=== PATIENT | female | born 1985 | race Two or more races ===

== ENCOUNTER 2017-10-06 09:38 | Outpatient (CLI) | payer OTHER ==
--- NOTE | 2017-10-08 12:09 | MRI Report ---
Procedure Date: 10/06/2017 Accession Number: [id number] / [id number] Procedure: MRI - Lumbar Spine W/O CPT Code: FULL RESULT: EXAM: MRI LUMBAR SPINE WITHOUT CONTRAST EXAM DATE: 10/06/2017 09:51 AM. CLINICAL HISTORY: Low back pain. COMPARISON: None. TECHNIQUE: Multiplanar, multisequence T1-weighted and fluid-sensitive sequences of the lumbar spine from T12 to S1 without contrast. Other: None. FINDINGS: Numbering assumes 5 non-rib bearing lumbar type vertebral bodies. Minimal grade 1 retrolisthesis of L3 relative to L4 and L4 relative to L5 is noted. There is slight rightward curvature in the lower lumbar spine and leftward curvature in the upper lumbar spine. The distal tip of the conus medullaris is seen at the level of the T12-L1 disk space. T9-L3: No posterior disk protrusion. L3-L4: A mild shallow foraminal and far lateral disk protrusion is seen on the right. Disk material attenuates the fat surrounding the right L3 nerve root after it exits the foramen. L4-L5: A minimal posterior lateral proximal foraminal protrusion is seen on the right. Superior lateral recess narrowing is seen bilaterally. L5-S1: No posterior disk protrusion. Facet/ligamentum flavum hypertrophy which is mild is present in the mid and lower lumbar spine. IMPRESSION: 1. A right-sided disk protrusion is seen at L3-L4 involving the foraminal and far lateral margin of the disk with disk material attenuating the fat surrounding the right L3 nerve root after it exits the foramen. 2. A minimal right-sided disk protrusion is seen involving the posterior lateral and foraminal margin of the disk at L4-L5. 3. No central canal or foraminal stenosis is identified. Comment: The following findings are so common in adults without low back pain that while we report their presence, they must be interpreted with caution and in the context of the clinical situation. (Reference Gisellk et al, Spine 2001) Prevalence of findings in patients without low back pain: Disk degeneration (any evidence): 92% Disk desiccation/T2 signal loss: 83% Disk height loss: 56% Disk bulge: 64% Disk protrusion: 32% Annular tear/high intensity zone: 38% RADIA
== END 2017-10-06 09:39 | disposition home or self-care (01) ==
LOC: DI 09:38
PROVIDERS: ATTEND Family Medicine
DX: M51.26 Other intervertebral disc displacement, lumbar region (principal)
CPT/HCPCS: 72148

== ENCOUNTER 2018-04-23 12:56 | Emergency (ER) | payer OTHER ==
[2018-04-23 13:05] VITALS: BP 141/88
--- NOTE | 2018-04-23 14:20 | ED Physician Documentation ---
History of Present Illness - Stated complaint Stated Complaint: LEFT TOE PX - Chief complaint Chief Complaint: Ext Problem - History obtained from History obtained from: Patient - History of Present Illness Timing: Other (2 months ago) Pain level max: 0 Pain level now: 0 - Additonal information Additional information: 32-year-old female presents to the emergency department with a red rash to the toes of the left foot for the past 2 months. Is been using lotion without relief. Nothing makes it better or worse. There is cracking and blistering as well. States it is itchy Review of Systems Constitutional: denies: Fever, Chills : reports: Other (No changes in sexual partners). 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 - Present Medications Home Medications: Ambulatory Orders Medication Instructions Recorded Confirmed Amitriptyline [Elavil] 25 mg PO HS 04/23/18 04/23/18 Terbinafine HCl 250 mg PO DAILY #14 tablet 04/23/18 - Allergies Allergies/Adverse Reactions: Allergies Allergy/AdvReac Type Severity Reaction Status Date / Time No Known Drug Allergies Allergy Verified 04/23/18 13:02 - Social History Does the pt smoke?: Yes Smoking Status: Current every day smoker Does the pt drink ETOH?: Yes - Immunizations Immunizations are current?: Yes PD ED PE NORMAL - Vitals Vital signs reviewed: Yes - General General: Alert and oriented X 3, No acute distress - HEENT HEENT: Moist mucous membranes - Derm Derm: Warm and dry - Extremities Extremities: Other (Erythema and scaling to the distal toes on the left foot. There is maceration of the tissue between the toes as well. Small satellite lesions. No pustules or vesicles.) - Neuro Neuro: Alert and oriented X 3 Results - Vitals Vitals: Vital Signs - 24 hr 04/23/18 13:02 Temperature 36.3 C L Heart Rate 102 H Respiratory 20 Rate Blood Pressure 141/88 H O2 Saturation 100 Oxygen O2 Source Room air PD MEDICAL DECISION MAKING - ED course Complexity details: considered differential, d/w patient ED course: Patient with tinea pedis of the left foot. She is well-appearing, nontoxic. Will place on terbinafine and follow-up with her doctor. She is not and has no plans to become . Patient counseled regarding signs and symptoms for which I believe and urgent re-evaluation would be necessary. Patient with good understanding of and agreement to plan and is comfortable going home at this time This document was made in part using voice recognition software. While efforts are made to proofread this document, sound alike and grammatical errors may occur. Departure - Departure Disposition: 01 Home, Self Care Clinical Impression: Tinea pedis Qualifiers: Laterality: left Qualified Code(s): B35.3 - Tinea pedis Condition: Good Instructions: ED Fungal Infec Athlete Foot Follow-Up: DINO HENRIQUEZ DO [Primary Care Provider] - Within 1 week Prescriptions: Terbinafine HCl 250 mg PO DAILY #14 tablet Comments: Take all medications until gone. Return if you worsen. You should have your liver tests checked with your doctor in 2 weeks.
== END 2018-04-23 14:33 | disposition home or self-care (01) ==
LOC: ED 12:56
DX: B35.3 Tinea pedis (principal); F17.200 Nicotine dependence, unspecified, uncomplicated
CPT/HCPCS: 99283

== ENCOUNTER 2018-06-04 07:48 | Outpatient (CLI) | payer OTHER ==
--- NOTE | 2018-06-05 04:45 | Ultrasound Report ---
Reason: PAIN, UNSPECIFIED, SYMPTOMS SIGNS INVOLVING THE Procedure Date: 06/04/2018 Accession Number: [id number] / [id number] Procedure: US - Duplex Ext Veins Bilateral CPT Code: FULL RESULT: EXAM: BILATERAL LOWER EXTREMITY VENOUS ULTRASOUND EXAM DATE: 06/04/2018 09:38 AM. CLINICAL HISTORY: Bilateral leg pain COMPARISON: DUPLEX LWR EXT ARTERIAL BILAT 06/04/2018 8:15 AM. TECHNIQUE: Real-time sonographic vascular imaging was performed by the service sprinkler helper through the lower extremities utilizing both color-flow and Doppler spectral analysis. Multiple internet sales representative static images were saved for review. FINDINGS: Right: Common Femoral Vein (CFV): Normal. CFV-GSV Junction: Normal. Profunda Femoral Vein (PFV): Normal. Femoral Vein (FV) Prox: Normal. Femoral Vein (FV) Mid: Normal. Femoral Vein (FV) Dist: Normal. Popliteal Vein: Normal. Posterior Tibial Veins: Normal. Peroneal Veins: Normal. Left: Common Femoral Vein (CFV): Normal. CFV-GSV Junction: Normal. Profunda Femoral Vein (PFV): Normal. Femoral Vein (FV) Prox: Normal. Femoral Vein (FV) Mid: Normal. Femoral Vein (FV) Dist: Normal. Popliteal Vein: Normal. Posterior Tibial Veins: Normal. Peroneal Veins: Normal. Other: None. IMPRESSION: No evidence for deep venous thrombosis bilaterally. RADIA
--- NOTE | 2018-06-06 09:11 | Ultrasound Report ---
Reason: PAIN, UNSPECIFIED, SYMPTOMS SIGNS INVOLVING THE Procedure Date: 06/04/2018 Accession Number: [id number] / [id number] Procedure: US - Duplex Lwr Ext Arterial Bilat CPT Code: FULL RESULT: EXAM: Bilateral Lower Extremity Arterial Doppler Ultrasound EXAM DATE: 06/04/2018 09:38 AM. CLINICAL HISTORY: Pain, bilateral lower extremity, with circulatory and respiratory symptoms. COMPARISON: None. TECHNIQUE: Real-time sonographic vascular imaging was performed by the ict support and test engineers, utilizing color-flow, Doppler flow, and spectral analysis. Multiple account services representative static images were saved for review. FINDINGS: Bilateral lower extremity arterial duplex interrogation was performed from the common femoral arteries to the dorsalis pedis arteries bilaterally. In both lower extremities the vascular system is patent by color Doppler throughout. Morphologically, no significant atherosclerotic disease is seen on grayscale Doppler. Brisk systolic upstrokes and preserved arterial waveforms are seen in all sampled vessels. Peak systolic velocities at sampled stations as below: Right Lower Extremity: SAMPLES AND REPAIRS PREPARER: PSV 143 cm/sec. PSFA: PSV 81 cm/sec. MSFA: PSV 81 cm/sec. DSFA: PSV 48 cm/sec. PFA: PSV 62 cm/sec. POP: PSV 62 cm/sec. TORRIE: PSV 46 cm/sec. CONVERTIBLE TOP INSTALLER: PSV 22 cm/sec. DINORA: PSV 32 cm/sec. DPA: PSV 41 cm/sec. Left Lower Extremity: SAMPLES AND REPAIRS PREPARER: PSV 109 cm/sec. PSFA: PSV 90 cm/sec. MSFA: PSV 67 cm/sec. DSFA: PSV 37 cm/sec. PFA: PSV 53 cm/sec. POP: PSV 48 cm/sec. TORRIE: PSV 27 cm/sec. CONVERTIBLE TOP INSTALLER: PSV 59 cm/sec. DINORA: PSV 48 cm/sec. DPA: PSV 23 cm/sec. IMPRESSION: Normal study. RADIA
== END 2018-06-04 07:49 | disposition home or self-care (01) ==
LOC: DI 07:48
PROVIDERS: ATTEND Family Medicine
DX: R09.89 Other specified symptoms and signs involving the circulatory and respiratory systems (principal); R52 Pain, unspecified
CPT/HCPCS: 93925; 93970

== ENCOUNTER 2019-01-03 11:39 | Outpatient (CLI) | payer OTHER ==
[2019-01-03 11:59] LABS: BASOPHILS % (AUTO) 0.6 %; EOSINOPHILS # (AUTO) 0.2 10^3/uL (0.0-0.7); EOSINOPHILS % (AUTO) 3.8 %; HGB - HEMOGLOBIN 13.7 g/dL (12.0-16.0); LYMPHOCYTES # (AUTO) 1.6 10^3/uL (1.5-3.5); LYMPHOCYTES % (AUTO) 25.6 %; MEAN CORPUSCULAR HEMOGLOBIN 30.6 pg (27.0-31.0); MEAN CORPUSCULAR HGB CONC 33.9 g/dL (32.0-36.0); MEAN CORPUSCULAR VOLUME 90.2 fL (81.0-99.0); MEAN PLATELET VOLUME 7.9 fL (7.9-10.8); MONOCYTES # (AUTO) 0.5 10^3/uL (0.0-1.0); MONOCYTES % (AUTO) 8.2 %; NEUTROPHILS # (AUTO) 3.9 10^3/uL (1.5-6.6); NEUTROPHILS % (AUTO) 61.5 %; PLT - PLATELET COUNT 229 10^3/uL (130-450); RED BLOOD COUNT 4.48 10^6/uL (4.20-5.40); RED CELL DISTRIBUTION WIDTH 12.6 % (12.0-15.0); WHITE BLOOD COUNT 6.4 x10^3/uL (4.8-10.8)
== END 2019-01-03 11:40 | disposition home or self-care (01) ==
LOC: LAB 11:39
PROVIDERS: ATTEND Obstetrics & Gynecology
DX: Z01.818 Encounter for other preprocedural examination (principal); N93.9 Abnormal uterine and vaginal bleeding, unspecified
CPT/HCPCS: 36415; 85025; 86850; 86900; 86901

== ENCOUNTER 2019-01-05 11:02 | Day surgery (SDC) | payer OTHER ==
[2019-01-05] MEDS ORDERED: PROPOFOL 200 MG/20 ML VIAL IVP ONE (11:03)
[2019-01-05] MEDS ORDERED: fentaNYL 100 MCG/2 ML VIAL IVP ONE (11:03)
[2019-01-05] MEDS ORDERED: DEXAMETHASONE 4 MG/ML VIAL IVP ONE (11:03)
[2019-01-05] MEDS ORDERED: MIDAZOLAM 2 MG/2 ML VIAL IVP ONE (11:03)
[2019-01-05] MEDS ORDERED: LACTATED RINGERS 1,000 ML IV ONE ×2 (11:08→13:17)
[2019-01-05 11:29] LABS: HCG UR QUAL NEGATIVE
[2019-01-05] MEDS ORDERED: VASOPRESSIN 20 UNIT/ML VIAL ONE (11:31)
[2019-01-05] MEDS ORDERED: LIDOCAINE 1% 50 ML MDV ONE (11:31)
--- NOTE | 2019-01-05 12:01 | ANESTHESIA ---
Pre-Anesthesia VS, & Labs - Diagnosis abnormal uterine bleeding - Procedure hysterscopy, D&C, uterine ablation Vital Signs: Temp Pulse Resp BP Pulse Ox 36.5 C 70 12 148/82 H 98 01/05/19 11:08 01/05/19 11:08 01/05/19 11:08 01/05/19 11:08 01/05/19 11:08 Height 4 ft 11.24 in Weight (kg) 58.4 kg Body Mass Index 25.4 - NPO >8 hours - Is Patient ?: No Home Medications and Allergies Home Medications: Ambulatory Orders Gabapentin 300 mg PO DAILY 12/29/18 Propranolol [Inderal] 10 mg PO BID 12/29/18 Trazodone HCl 100 mg PO DAILY 12/29/18 Gabapentin 300 mg PO DAILY 12/29/18 Propranolol [Inderal] 10 mg PO BID 12/29/18 Trazodone HCl 100 mg PO DAILY 12/29/18 Allergies/Adverse Reactions: Allergies Allergy/AdvReac Type Severity Reaction Status Date / Time No Known Drug Allergies Allergy Verified 12/29/18 12:01 Anes History & Medical History - Anesthetic History Anesthesia Complications: reports: No previous complications - Medical History Cardiovascular: reports: Hypertension, Other (history of peripartum cardiomyopathy) Pulmonary: reports: None Gastrointestinal: reports: GI bleed, Pancreatitis, Other (hisory of alcoholic liver disease) Urinary: reports: None Neuro: reports: None Musculoskeletal: reports: None Endocrine/Autoimmune: reports: None Blood Disorders: reports: None Skin: reports: None Smoking Status: Current every day smoker (1 pack per day) Psychosocial: reports: Alcohol (4-6 cans of beer per day) - Surgical History General: EGD Gynecologic: section, Tubal ligation Results - EKG Results EKG Comparison: Reviewed EKG - Echo Results Echo Results: Other (No recent report available. Patient reports her most recent studies were "perfect") Exam General: Alert, Oriented x3, Cooperative, No acute distress Dental: WNL Mouth Openin Fingerbreadth Neck Mobility: Normal Mallampati classification: III Thyromental Distance: 4-6 cm Respiratory: Lungs clear, Normal breath sounds, No respiratory distress, No accessory muscle use Cardiovascular: Regular rate, Normal S1, Normal S2, No murmurs Mental/Cognitive Status: Alert/Oriented X3, Normal for patient Plan Anesthesia Type: General Consent for Procedure(s) Verified and Reviewed: Yes Code Status: Attempt Resuscitation ASA classification: 3-Severe systemic disease Is this case an emergency?: No
[2019-01-05] MEDS ORDERED: HYDROmorphone 0.5 MG/0.5 ML SYRINGE IVP PRN (13:18)
[2019-01-05] MEDS ORDERED: oxyCODONE 5 MG TABLET PO PRN (13:18)
--- NOTE | 2019-01-05 13:21 | OPERATIVE REPORT ---
Operative Report - General Procedure Date: 01/05/19 Planned Procedure: diagnostic hysteroscopy, dilation and curettage, endometrial ablation Pre-Op Diagnosis: abnormal uterine bleeding Procedure Performed: diagnostic hysteroscopy, dilation and curettage Post Op Diagnosis: same as above - Procedure Note Primary Surgeon: Brynn Gilliland Anesthesia Technique: General LMA Pathology: endometrial curettings IV Fluids (mL): 900 Estimated Blood Loss (mL): 5 Urine Output (mL): 150 Indications: abnormal uterine bleeding Findings: lush endometrium, narrow cavity. Moderate tissue returned on curretting. Cervical length 4.5 cm, uterine length 10 cm, cavity length 5.5 cm. Width 1.5 cm on multiple measurements with Novasure device. Fluid deficit 155 ml Complications: Cavity too narrow for Novasure ablation per steamer operator recommendation - Other Other Information/Narrative: Procedure: After informed consent was assured, the patient was taken to the operating room where anesthesia was induced. Pt was placed in high dorsal lithotomy. An exam under anesthesia was performed which revealed a small anteverted uterus. The patient was prepped and draped in the usual sterile fashion. Hysteroscopy equipment was set up and white balanced. A surgical timeout was performed. A speculum was inserted into the vagina, and a tenaculum was placed on the anterior lip of the cervix. The uterine sound was used to measure the cervical length at 4.5 cm and uterine depth at 10 cm, for a cavity length of 5.5 cm. Hegar dilators were used to dilate the cervix up to 15 slovenian. The hysteroscope light was turned on and fluids were run through. The hysteroscope was passed through the cervix into the endometrial cavity, which was gently distended with fluid. Initially difficulty was noted distending the cavity, however after increasing the pressure to 80, better visualization was achieved. Lush endometrium but no masses noted; the cavity was noted to be narrow. The hysteroscope was withdrawn. The Novasure device was opened and the radiofrequency device retracted into the deployment arm; the width was noted to measure 0.5 cm. The device was inserted through the cervix to the fundus, withdrawn 0.5 cm, then the arms of the device were deployed. The cervical cap was placed against the cervix. The device was gently rotated 45 degrees clockwise and counterclockwise while squeezing the handle, but the width was only noted to be 1.5 cm. This procedure was repeated multiple times, but cavity width was never noted to be wider than 1.5 cm. The procedure was abandoned due to insufficient cavity width. The tenaculum was removed from the cervix with good hemostasis observed. All instruments were removed from the vagina, and a repeat bimanual exam revealed a small firm uterus and no instruments in the vaginal vault. The pt was taken to PACU in stable condition.
[2019-01-05] MEDS ORDERED: oxyCODONE 5 MG TABLET ONE (13:56)
[2019-01-05 14:00] VITALS: BP 142/83
== END 2019-01-05 11:03 | disposition home or self-care (01) ==
LOC: SDS 11:02
PROVIDERS: ATTEND Obstetrics & Gynecology
PROC: 0UDB7ZZ Extraction of Endometrium, Via Natural or Artificial Opening (ICD-10-PCS; principal; 2019-01-05 12:30)
PROC: 0UJD8ZZ Inspection of Uterus and Cervix, Via Natural or Artificial Opening Endoscopic (ICD-10-PCS; 2019-01-05 12:30)
DX: N93.9 Abnormal uterine and vaginal bleeding, unspecified (principal); I10 Essential (primary) hypertension; F10.20 Alcohol dependence, uncomplicated; F17.210 Nicotine dependence, cigarettes, uncomplicated; Z86.79 Personal history of other diseases of the circulatory system; Z98.51 Tubal ligation status; Z86.39 Personal history of other endocrine, nutritional and metabolic disease
CPT/HCPCS: 81025